=== PATIENT | female | born 1995 | race African-American/Black ===

== ENCOUNTER 2017-03-17 18:23 | Emergency (ER) | payer OTHER ==
[~2017-03-17] VITALS: Ht 162.6 cm; Wt 117.0 kg
[~2017-03-17 18:23] MED LIST: AMOXICILLIN500 M1 PO; MOTRIN400 MG PO; MOTRIN600 M1 PO; ZITHROMAX1 G/PKT PO
== END 2017-03-17 20:22 | disposition home or self-care (01) ==
LOC: CFTX 18:23 → CED 18:23 → CFTX 19:26
DX: J02.0 Streptococcal pharyngitis (principal); I10 Essential (primary) hypertension
CPT/HCPCS: 87880; 96372; 99283; J0561; J1100